=== PATIENT | female | born 1995 | race Caucasian/White ===

== ENCOUNTER 2023-03-03 17:04 | Emergency (ER) | payer MEDICAID, OTHER ==
[~2023-03-03] VITALS: Ht 160 cm; Wt 73.0 kg
[2023-03-03 17:11] VITALS: BP 138/66; O2SAT 99
[2023-03-03 17:51] LABS: BASOPHILS % 0.7 % (0.0-2.0); EOSINOPHILS % 4.5 % (0.0-5.0); HEMOGLOBIN. 12.2 g/dL (12.0-16.0); LYMPHOCYTES % 38.5 % (20.0-50.0); MEAN CORPUSCULAR HEMOGLOBIN 29.4 pg (28.0-32.0); MEAN CORPUSCULAR HGB CONC 33.1 g/dL (31.0-37.0); MEAN CORPUSCULAR VOLUME 88.8 fL (81.0-99.0); MEAN PLATELET VOLUME 7.6 fl (7.4-10.4); MONOCYTES % 6.6 % (2.0-8.0); NEUTROPHILS % 49.7 % (40.0-76.0); PLATELET 296 x1000/uL (130-400); RED BLOOD CELL COUNT 4.17 mill/uL (4.2-5.4); RED CELL DISTRIBUTION WIDTH 13.7 % (11.6-14.6); WHITE BLOOD COUNT 6.6 x1000/uL (4.5-11.0)
[2023-03-03 17:52] LABS: CLARITY URINE CLEAR (CLEAR); COLOR URINE YELLOW (YELLOW); GLUCOSE URINE NEGATIVE (NEGATIVE); KETONES URINE NEGATIVE (NEGATIVE); LEUKOCYTE ESTERASE URINE 1+ (NEGATIVE); NITRITE URINE NEGATIVE (NEGATIVE); OCCULT BLOOD URINE 3+ (NEGATIVE); PROTEIN URINE TRACE (NEGATIVE); SPECIFIC GRAVITY URINE 1.025 (1.005-1.030)
[2023-03-03 17:54] LABS: RBC URINE TNTC /hpf (0-2); SQUAMOUS EPITHELIAL CELL URINE 1+ /lpf (RARE/1+); YEAST URINE NONE SEEN
[2023-03-03 18:00] LABS: CHLORIDE 106 mEq/L (98-107); INDEX HEMOLYSI 1 (1-3); INDEX ICTERIC 1 (1-4); INDEX LIPEMIC 1 (1-3); POTASSIUM 3.5 mEq/L (3.5-5.1); SODIUM 139 mEq/L (136-145)
[2023-03-03 18:10] LABS: ALANINE AMINOTRANSFERASE 25 IU/L (13-61); ALBUMIN 3.8 g/dL (3.4-5.0); ASPARTATE AMINOTRANSFERASE 17 IU/L (15-37); BILIRUBIN TOTAL 0.2 mg/dL (0.1-1.0); CALCIUM 8.6 mg/dL (8.5-10.1); CARBON DIOXIDE 29 mEq/L (21-32); CREATININE 0.6 mg/dL (0.6-1.3); GLUCOSE 101 mg/dL (70-105); PROTEIN TOTAL 7.5 g/dL (6.0-8.3); UREA NITROGEN BLOOD 14 mg/dL (7-21)
[2023-03-03 18:18] LABS: BACTERIA URINE TRACE
[2023-03-03 18:24] LABS: TROPONIN I HIGH SENSITIVITY < 4 ng/L (<54)
[2023-03-03] MEDS ORDERED: MECLIZINE 25MG TABLET PO ONE (22:45)
[2023-03-03 22:50] VITALS: PULSE 88; RESP 18; TEMP 98
== END 2023-03-03 22:51 | disposition home or self-care (01) ==
LOC: ER 17:04
DX: R42 Dizziness and giddiness (principal); R53.1 Weakness; Z90.49 Acquired absence of other specified parts of digestive tract
CPT/HCPCS: 99285; 71045; 80053; 81003; 81025; 85025; 84484; 36415; 93005; J8597